=== PATIENT | male | born 1945 | race Caucasian/White ===

== ENCOUNTER 2020-10-14 10:09 | Outpatient (REF) | payer MEDICARE, MEDICAID, SELFPAY ==
[2020-10-14 14:01] LABS: Hematocrit 37.1 % (42-52); Hemoglobin 12.4 g/dl (14.0-18.0); Mean Corpuscular HGB Conc 33.4 g/dl (31.0-36.0); Mean Corpuscular Hemoglobin 30.6 pg (27.0-33.0); Mean Corpuscular Volume 91.6 fL (80-98); Mean Platelet Volume 9.6 fL (9.4-12.4); Platelet Count 198 X10*3/uL (160-400); Red Blood Count 4.05 X10*6/uL (4.60-5.80); Red Cell Distribution Width 11.8 % (11.0-16.0); White Blood Count 2.6 X10*3/uL (4.8-10.8)
[2020-10-14 14:08] LABS: Estimated Average Glucose 108 mg/dL; Hemoglobin A1c % 5.4 %
[2020-10-14 14:18] LABS: Alanine Aminotransferase 19 U/L (0-40); Albumin Level 4.4 g/dL (3.5-5.0); Alkaline Phosphatase 79 U/L (39-117); Anion Gap 13 (12-20); Aspartate Amino Transferase 19 U/L (5-37); Bilirubin Total 0.4 mg/dL (0.0-1.0); Blood Urea Nitrogen 9 mg/dL (9-16); Calcium 9.2 mg/dL (8.4-10.2); Carbon Dioxide 25 mmol/L (22-29); Chloride 96 mmol/L (96-108); Estimated Glomerular Filt Rate > 60; Glucose Random 91 mg/dL (60-115); Potassium 4.6 mmol/L (3.3-5.1); Sodium 129 mmol/L (135-145); Total Protein 6.8 g/dL (6.5-8.0)
[2020-10-14 14:39] LABS: Prostate Specific Antigen 3.54 ng/mL (<0.05-4.0); Thyroid Stimulating Hormone 0.87 uIU/mL (0.32-4.0)
[2020-10-14 15:01] LABS: Vitamin B12 459 pg/mL (200-900)
== END 2020-10-14 10:10 | disposition home or self-care (01) ==
LOC: HO.MANLDS 10:09
PROVIDERS: PCP Internal Medicine; Visit Provider Internal Medicine
DX: Z12.5 Encounter for screening for malignant neoplasm of prostate (principal); R97.20 Elevated prostate specific antigen [PSA]; R73.9 Hyperglycemia, unspecified; R06.09 Other forms of dyspnea; Z76.89 Persons encountering health services in other specified circumstances
CPT/HCPCS: 36415; 80053; 82607; 83036; 84153; 84443; 85027

== ENCOUNTER 2020-11-18 15:43 | Outpatient (REF) | payer MEDICARE, MEDICAID, SELFPAY | END 2020-11-18 15:44 | disposition home or self-care (01) | LOC: HO.MANLNP 15:43 | PROVIDERS: PCP Physician Assistant; Visit Provider Physician Assistant | DX: N39.0 Urinary tract infection, site not specified (principal) | CPT/HCPCS: 87086 ==